=== PATIENT | male | born 2000 | race Caucasian/White ===

== ENCOUNTER 2022-07-18 08:28 | Outpatient (RCR) | payer BC | END 2022-07-23 | disposition home or self-care (01) | PROVIDERS: ATTEND Physical Therapist | DX: M25.511 Pain in right shoulder (principal); J45.909 Unspecified asthma, uncomplicated ==

== ENCOUNTER 2023-02-18 13:03 | Outpatient (RCR) | payer BC | END 2023-02-20 | disposition home or self-care (01) | PROVIDERS: ATTEND Physical Therapist | DX: M75.21 Bicipital tendinitis, right shoulder (principal) ==

== ENCOUNTER 2023-03-13 15:00 | Outpatient (RCR) | payer BC | END 2023-03-22 | disposition home or self-care (01) | PROVIDERS: ATTEND Physical Therapist | DX: M75.21 Bicipital tendinitis, right shoulder (principal); J45.909 Unspecified asthma, uncomplicated ==